=== PATIENT | male | born 1950 | race Two or more races ===

== ENCOUNTER → 2021-06-15 15:18 | Outpatient (CLI) | payer MEDICARE, SELFPAY ==
--- NOTE | 2021-06-15 | LES_PTH ---
PATIENT: JOHN ENGLISH LOC: [facility] U#:[id number] AGE/SX: 74/M ROOM: RE06/15/[address]: Dr. Julian Kiser MD : 1950 BED: DIS: SPEC #: [id number] RECD: 06/15/21 15:00 STATUS: CLARK ELIANA #: [id number] MARIAMA: 06/15/21 00:[address]: Julian Kiser DEPT: SURGICAL PATHOLOGY RECD BY: Mario Gresham Tissues: Skin of eyelid, NOS Procedures: Surgery Specimen Level IV HEADER OPERATION: Excisional biopsy of CARLOS lesion PRE-OP DIAGNOSIS: CARLOS lesion TISSUE SUBMITTED: CARLOS lesion MICROSCOPIC DIAGNOSIS Left upper eyelid lesion, biopsy: Benign fibroepithelial polyp. AM:jennifer 06/19/2021 MICROSCOPIC DESCRIPTION Slides are reviewed. GROSS DESCRIPTION Received in fixative is one container labeled with the patient's name and designated left upper lid. The specimen consists of a piece of bauer-white skin measuring 0.3 x 0.3 x 0.1 cm. The specimen is totally submitted in one cassette. / SJ:jennifer 06/16/21 TC:5 [facility]: [id number]
== END ==
PROVIDERS: Visit Provider Ophthalmology
DX: H02.9 Unspecified disorder of eyelid (principal)
CPT/HCPCS: 88305